=== PATIENT | female | born 1945 | race Caucasian/White ===

== ENCOUNTER 2017-10-08 16:53 | Emergency (ER) | payer BC ==
[2017-10-08 17:02] VITALS: BP 171/69
--- NOTE | 2017-10-08 17:44 | UC ---
Clayton Pulido Jennifer, scribed for Gregg Mills MD on 10/08/17 at 1713 . Back Pain HPI - HPI Summary HPI Summary: The pt is a 72 y/o female who complains of pain through her left back with shortness of breath that began a few days ago. Pt reports deep breaths aggravate her pain. Pt reports she was at [facility] this morning where they did a CXR and EKG and recommended a CT scan, which is why she came here. She additionally complains of chest pain, cough, and pain behind her right knee. Pt denies any recent illnesses, abdominal pain, fever, chills. - History of Current Complaint Chief Complaint: UCGeneralIllness Stated Complaint: BACK PAIN Time Seen by Provider: 10/08/17 17:06 Hx Obtained From: Patient Onset/Duration: Sudden Onset, Lasting Days - few days, Still Present Timing: Constant Severity Initially: Moderate Severity Currently: Moderate Pain Intensity: 6 Pain Scale Used: 0-10 Numeric Back Pain: Is Diffuse - especially left side Aggravating Factor(s): Other - Deep Breaths Alleviating Factor(s): Nothing Associated Signs And Symptoms: Positive: Other - CHest pain, Shortness of breath , cough, pain behind right knee. NEGATIVE: recent illness, abdominal pain, fever , chills - Allergies/Home Medications Allergies/Adverse Reactions: Allergies Allergy/AdvReac Type Severity Reaction Status Date / Time Penicillins Allergy Hives Verified 10/08/17 17:03 tetanus toxoid, adsorbed Allergy Edema Verified 10/08/17 17:03 PMH/Surg Hx/FS Hx/Imm Hx - Additional Past Medical History Additional PMH: Lyme disease. Endocrine History: Other - Varicose Veins Other Endocrine History: . GI/ History: Gastroesophageal Reflux, Other Other GI/ History: Colitis - Surgical History Surgical History: Yes Surgery Procedure, Year, and Place: right elbow - Family History Known Family History: Negative: Renal Disease - Social History Alcohol Use: None Substance Use Type: None Smoking Status (MU): Never Smoked Tobacco Review of Systems Constitutional: Negative - Fever, chills Respiratory: Shortness Of Breath, Cough Cardiovascular: Chest Pain Musculoskeletal: Other: - Back pain, pain behind right knee Is Patient Immunocompromised?: No All Other Systems Reviewed And Are Negative: Yes Physical Exam - Summary Physical Exam Summary: General: well-appearing, no pain distress Skin: warm, color reflects adequate perfusion, dry Head: normal Eyes: EOMI, ADRIENNE ENT: normal Neck: supple, nontender Respiratory: CTA, breath sounds present Cardiovascular: RRR Abdomen: soft, nontender Bowel: present Musculoskeletal: normal, strength/ROM intact Neurological: normal, sensory/motor intact, A&O x3 Psychological: affect/mood appropriate Triage Information Reviewed: Yes Vital Signs: Initial Vital Signs Temp 97.3 F 10/08/17 16:56 Pulse 73 10/08/17 16:56 Resp 20 10/08/17 16:56 BP 171/69 10/08/17 16:56 Pulse Ox 99 10/08/17 16:56 Vital Signs Reviewed: Yes Back Pain Course/Dx - Course Course Of Treatment: Medications reviewed. Allergies noted. BP noted and advised to follow up with PCP. PE AND CARDIAC ARE TWO POSSIBLE CAUSES OF THE PATIENT'S PAIN. WE ARE UNABLE TO EVALUATE FOR THOSE CONDITIONS HERE IN CLINIC. THIS WAS ALL DISCUSSED WITH THE PATIENT. SHE DECLINED AMBULANCE TRANSPORT, WILL GO BY POV. DISCUSSED WITH DR FRAGOSO IN THE ED. - Differential Dx/Diagnosis Provider Diagnoses: CHEST PAIN Discharge - Discharge Plan Condition: Stable Disposition: HOME Patient Education Materials: Chest Pain (ED) Referrals: Keke Lawson MD [Primary Care Provider] - Additional Instructions: GO DIRECTLY TO THE EMERGENCY DEPARTMENT FOR FURTHER EVALUATION OF YOUR CHEST PAIN. YOUR BLOOD PRESSURE WAS ELEVATED TODAY; FOLLOW UP WITH YOUR PRIMARY CARE DOCTOR WITHIN ONE WEEK. The documentation as recorded by the Clayton munguia Jennifer accurately reflects the service I personally performed and the decisions made by me, Gregg Mills MD.
== END 2017-10-08 17:25 | disposition home or self-care (01) ==
LOC: UCEAST 16:53
DX: R07.89 Other chest pain (principal); R06.02 Shortness of breath; R05 Cough; K21.9 Gastro-esophageal reflux disease without esophagitis; Z88.0 Allergy status to penicillin; Z88.7 Allergy status to serum and vaccine
CPT/HCPCS: 99212; G0463

== ENCOUNTER 2017-10-08 17:48 | Observation (INO) | payer BC, MEDICARE ==
[2017-10-08 18:42] LABS: ABS Basophils 0.1 10^3/ul (0-0.2); ABS Eosinophils 0.4 10^3/ul (0-0.6); ABS Monocytes 0.9 10^3/ul (0-0.8); ABS Neutrophils 5.3 10^3/ul (1.5-7.7); ABS Nucleated RBC 0 10^3/ul; Eosinophil % 3.7 % (0-6); Hematocrit 40 % (35-47); Hemoglobin 13.7 g/dl (12.0-16.0); Lymphocyte % 42.3 % (25-47); Mean Corpuscular HGB Conc 34 g/dl (31-36); Mean Corpuscular Hemoglobin 29 pg (27-31); Mean Corpuscular Volume 86 fL (80-97); Mean Platelet Volume 9 um3 (7.4-10.4); Nucleated Red Blood Cells % 0; Platelet Count 269 10^3/ul (150-450); Red Blood Count 4.65 10^6/ul (4.0-5.4); Red Cell Distribution Width 14 % (10.5-15); White Blood Count 11.8 10^3/ul (3.5-10.8)
--- NOTE | 2017-10-08 19:04 | RAD ---
Indication: Dyspnea. 2 views of the chest including dual energy PA views demonstrate no mediastinal shift. Heart is of normal size and configuration. Lung rodrigues are clear. IMPRESSION: No active cardiopulmonary disease is noted.
[2017-10-08 20:33] LABS: EGFR Non-African American 72.4 (>60)
[2017-10-08] MEDS ORDERED: Iohexol 350* (CONTRAST) 500 ML MDV IV ONE (20:42)
--- NOTE | 2017-10-08 21:29 | RAD ---
Indication: Dyspnea, elevated d-dimer. Contrast: Administered 72.2 ml of OMNIPAQUE 350 mg/ml CTA of the chest was performed after IV contrast administration. Coronal and sagittal reconstructed images were obtained. The pulmonary arterial tree is well opacified. There are 2 small filling defects in the subsegmental arteries of the left lower lobe suggestive of pulmonary embolus. Age of these is undetermined. The aorta demonstrates no evidence of aortic dissection or aneurysmal dilatation. The heart is of normal size without evidence of pericardial effusion. There is no mediastinal or hilar adenopathy noted. The trachea and major bronchi appear patent. The lung rodrigues demonstrate no evidence of alveolar consolidation. No focal nodules are identified. The visualized abdominal organs are grossly unremarkable. IMPRESSION: There are filling defects in 2 subsegmental pulmonary arteries in the left lower lobe which may represent pulmonary embolus. Age of these are undetermined. No other intraluminal filling defects are noted. No focal nodules or alveolar consolidation noted.
[2017-10-08] MEDS ORDERED: Heparin DRIP 25,000 UNITS(*) 25,000 UNITS/500 ML BAG IVPB SCH (22:00)
[2017-10-08] MEDS ORDERED: Heparin VIAL(*) 5000 UNITS/ML VIAL (FIVE THOUSAND) IV SCH (22:00)
[2017-10-08 22:18] LABS: ABS Basophils 0.1 10^3/ul (0-0.2); ABS Eosinophils 0.4 10^3/ul (0-0.6); ABS Lymphocytes 4.8 10^3/ul (1.0-4.8); ABS Monocytes 0.9 10^3/ul (0-0.8); ABS Neutrophils 4.8 10^3/ul (1.5-7.7); ABS Nucleated RBC 0 10^3/ul; Eosinophil % 3.7 % (0-6); Hematocrit 39 % (35-47); Hemoglobin 13.3 g/dl (12.0-16.0); Lymphocyte % 43.7 % (25-47); Mean Corpuscular HGB Conc 34 g/dl (31-36); Mean Corpuscular Hemoglobin 29 pg (27-31); Mean Corpuscular Volume 86 fL (80-97); Mean Platelet Volume 9 um3 (7.4-10.4); Nucleated Red Blood Cells % 0; Platelet Count 247 10^3/ul (150-450); Red Blood Count 4.53 10^6/ul (4.0-5.4); Red Cell Distribution Width 14 % (10.5-15)
[2017-10-08 22:31] LABS: EGFR Non-African American 78.1 (>60)
[2017-10-08] MEDS ORDERED: Acetaminophen TAB* 325 MG PO PRN (23:14)
[2017-10-08] MEDS ORDERED: amLODIPine TAB* 5 MG PO ONE (23:31)
[2017-10-09] MEDS: Apixaban* 5 MG TAB PO SCH ×2 (00:32→08:46)
--- NOTE | 2017-10-09 02:25 | HP ---
CC: Dr. Lawson * HISTORY AND PHYSICAL: DATE OF ADMISSION: 10/08/17 PRIMARY CARE PROVIDER: Dr. Lawson. CHIEF COMPLAINT: Chest pain/shortness of breath. HISTORY OF PRESENT ILLNESS: Ms. Moy is a 72-year-old female who at approximately 9 a.m. went to [facility] for complaints of shortness of breath and pain in her left upper back. She states that they did an EKG and a chest x-ray which were clear. She states they wanted to put her in an ambulance and send her to the emergency room; however, she refused. The patient then called to the emergency room later in the day to be seen and was told that it was busy, therefore, went to Urgent Care. She again was worked up for these complaints and again was told to go to the emergency room. The patient finally presented to the emergency room for evaluation. She was identified to have an elevated D-dimer of 254 and filling defects in 2 subsegmental pulmonary arteries in the left lower lobe. These were felt to be age indeterminate. The patient states that she has not had any recent long distance travel. She has not had any recent surgery. She does not have a history of recurrent miscarriages. She states currently she feels very comfortable. She has never had a DVT in the past. The patient's sister however has had a history of DVT; however, she has had a stroke and was paralysed and nonambulatory. Towards the end of my evaluation, the patient then reports to me that she had pain behind her right knee approximately 4 days ago. She notes the knee/lower leg was stiff, swollen and painful. This is now resolved. PAST MEDICAL HISTORY: 1. Hypertension. 2. Hypothyroidism. 3. History of ulcerative colitis. PAST SURGICAL HISTORY: Right elbow surgery. ALLERGIES: PENICILLIN. MEDICATIONS: 1. Metoprolol tartrate 25 mg p.o. twice daily. 2. Levofloxacin 100 mcg p.o. daily. 3. Ibuprofen 600 mg p.o. p.r.n. pain. 4. Prempro 0.625 mg 1 tab p.o. daily. FAMILY HISTORY: Mom is living, she is 95. She has Alzheimer's dementia and diabetes. Dad at the age of 49 of a "blood cancer." The patient's sister as above has a history of stroke and DVT recently. SOCIAL HISTORY: The patient is a former smoker. She quit approximately 17 years ago. She does not drink alcohol. She runs a bed and breakfast. She is . She has 3 children. She indicates that her , Magdy would be her healthcare proxy. REVIEW OF SYSTEMS: A complete 11-system review of systems is obtained. Pertinent positives and negatives are as per HPI and in addition, the patient does complain of chronic cough that she attributes to postnasal drip and intermittent hematuria. She states she has been worked up for this by Dr. Garrido with no clear cause found. The rest of the review of systems is negative. PHYSICAL EXAMINATION GENERAL: The patient is a well-developed, elderly female seen sitting up in the stretcher, in no acute distress. VITAL SIGNS: Blood pressure 174/82, pulse 70, respirations 18, temp 98.6, O2 sat 97% on room air. HEENT: Pupils are equal and round. Extraocular muscles are intact. Oropharynx is clear. Oral mucosa is moist. There is no submandibular, cervical or supraclavicular adenopathy. Thyroid is not enlarged. No thyroid nodules are noted. PULMONARY: Lungs are clear to auscultation bilaterally. CARDIAC: Normal S1, S2. Regular rate and rhythm. I do not appreciate any murmurs. ABDOMEN: Bowel sounds are present. Abdomen is soft, nontender and nondistended. MUSCULOSKELETAL: There is no edema of the lower extremities. There is full active range of motion of all 4 extremities. NEUROLOGIC: Cranial nerves II through XII are grossly intact. Sensation is intact to light touch throughout. Strength is 5/5 and symmetric in both upper and lower extremities bilaterally. PSYCH: The patient is alert. She is oriented x3. Affect appears appropriate. SKIN: Warm and dry. There are no rashes. DIAGNOSTIC STUDIES/LAB DATA: WBC 11.0, hemoglobin 13.3, hematocrit 39, platelets 247. D-dimer 254, PTT 27.5. Sodium 136, potassium 3.7, chloride 103 , CO2 24, BUN 12, creatinine 0.78, glucose 87, calcium 10.2, bilirubin 0.4. AST 18, ALT 11, alk phos 67. Troponin 0.01. Albumin 4.3. TSH 0.80. Chest x-ray, no active cardiopulmonary disease is noted. CTA chest, there are filling defects in 2 subsegmental pulmonary arteries in the left lower lobe, which may represent pulmonary emboli. The age of these are undetermined. No other intraluminal filling defects are noted. No focal nodules or alveolar consolidation is noted. EKG reveals normal sinus rhythm with possible LVH. ASSESSMENT AND PLAN: Ms. Moy is a 72-year-old female with a history of hypertension, hypothyroidism and ulcerative colitis, who presents to the emergency room with complaints of chest pain and shortness of breath that began this morning and was found to have 2 small pulmonary emboli. 1. Pulmonary emboli. The patient after a very lengthy discussion of the risks and benefits of Coumadin plus Lovenox injections until her INR is therapeutic versus Eliquis/Xarelto has decided to be started on Eliquis 5 mg twice daily. She does understand that there is no reversal agent at this time. 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 I have informed her that she will need to hold pressure longer. If it does not stop bleeding, she should present to the emergency room. The patient will undergo bilateral lower extremity Dopplers. As per the HPI, the patient towards the end of my evaluation with her did tell me that she had had pain behind her right knee. I am suspicious she may have had a DVT at that point. This appears to be an unprovoked DVT. Workup for hypocoagulable state could be considered as an outpatient. She will also undergo transthoracic echocardiogram. As long as the patient is stable tomorrow, she will be discharged home on Eliquis. 2. Hypertension. The patient's blood pressure is markedly elevated. She is seeming somewhat anxious. I will give amlodipine 5 mg x1 now. If her blood pressure remains elevated tomorrow, this could be added to her medication regimen. 3. Hypothyroidism. The patient will continue on levothyroxine 100 mcg p.o. daily. 4. DVT prophylaxis. According to the Adult Thrombosis Prophylaxis Risk Factor Assessment Guide, the patient has a total risk factor score of 6 making her the highest risk. As above, she will be on Eliquis. 5. Code status is full. TIME SEEN: Sixty-five minutes was spent admitting this patient. [id number]/[facility] #: [id number] JULES
[2017-10-09] MEDS ORDERED: Levothyroxine TAB* 100 MCG TAB PO SCH (08:00)
[2017-10-09] MEDS ORDERED: Metoprolol Tartrate TAB* 25 MG PO SCH (09:00)
--- NOTE | 2017-10-09 10:32 | RAD ---
HISTORY: Evaluate for DVT, right knee pain COMPARISONS: None relevant TECHNIQUE: Multiple transverse and longitudinal ultrasound images were obtained of the right lower extremity from the level of the common femoral vein inferiorly through to the infrapopliteal veins using grayscale, color Doppler, and spectral Doppler imaging with and without compression and with augmentation. Comparison images were obtained of the contralateral common femoral vein. FINDINGS: VEINS: The venous system of the right lower extremity is compressible throughout its course, with normal flow on color Doppler imaging and normal response to augmentation on spectral Doppler imaging. SOFT TISSUES: Unremarkable. OTHER FINDINGS: None. IMPRESSION: NO RIGHT LOWER EXTREMITY DEEP VEIN THROMBOSIS
--- NOTE | 2017-10-09 11:54 | ECHO ---
Patient: SUZY DUMONT [facility] Rec#: [id number] : 1945 Date: 10/09/2017 Age: 72y Height: 167.6 cm / 66.0 in Weight: 79.8 kg / 175.9 lbs Sex: F BSA: 1.9 Room#: [facility] Admit Date#: 10/08/2017 Type: Inpatient Referring: Socorro Jones DO Reading: Eusebia Perez MD Lump Receiver: Ivania Palma RN RDCS CC: WYATT SHELTON Transthoracic Echocardiogram Indication: Pulmonary embolism BP: 141/79 HR: 74 Rhythm: NSR Findings History: HTN, hypothyroidism, former smoker Technical Comments: The study quality is fair. The study is technically limited due to patient body habitus. The study is technically limited due to the patient's smoking history. Completed at 0855. Left Ventricle: The left ventricular chamber size is normal. There is a prominent septal knuckle. Global left ventricular wall motion and contractility are within normal limits. There is normal left ventricular systolic function. The estimated ejection fraction is 55-60%. The assessment of diastolic function is non-diagnostic. Left Atrium: The left atrial chamber size is normal. Right Ventricle: The right ventricular chamber size and systolic function are within normal limits. Right Atrium: The right atrial cavity size is normal. Aortic Valve: The aortic valve is trileaflet. The aortic valve leaflets are mildly thickened. There is mild aortic regurgitation. There is no evidence of aortic stenosis. Mitral Valve: The mitral valve leaflets are mildly thickened. There is a trace of mitral regurgitation. There is no evidence of mitral stenosis. Tricuspid Valve: The tricuspid valve leaflets are normal. There is trace tricuspid regurgitation. Unable to estimate the right ventricular systolic pressure. There is no tricuspid stenosis. Pulmonic Valve: The pulmonic valve structure is not well visualized. There is a trace pulmonic regurgitation. There is no pulmonic stenosis. Pericardium: There is no significant pericardial effusion. A pericardial fat pad is visualized. Aorta: The ascending aorta is not well visualized. There is no dilatation of the aortic arch. There is no dilation of the aortic root. Pulmonary Artery: The main pulmonary artery is not well visualized. Venous: The inferior vena cava appears normal in size. There is a greater than 50% respiratory change in the inferior vena cava dimension. Summary: There was not any prior study for comparison. Conclusions The left ventricular chamber size is normal. There is normal left ventricular systolic function. The estimated ejection fraction is 55-60%. There is mild aortic regurgitation. There is a trace of mitral regurgitation. There is trace tricuspid regurgitation. There is a trace pulmonic regurgitation. Measurements Name Value Normal Range RVDdMajor (2D) 3 cm (2.2 - 4.4) RAd ISD 4CH 4.5 cm (3.4 - 4.9) RA (A4C)W 3.2 cm (2.9 - 4.6) IVSd (2D) 1 cm (0.6 - 1) LVPWd (2D) 1 cm (0.6 - 1) LVIDd (2D) 3.9 cm (3.6 - 5.4) LVIDs (2D) 2.9 cm - LV FS (2D) 26 % (25 - 45) Aortic Annulus 2 cm (1.4 - 2.6) Ao root diameter (2D) 3.1 cm (2.1 - 3.5) Aortic arch 2.6 cm (1.8 - 3.4) LA dimension (AP) 2D 2.7 cm (2.3 - 3.8) LAd ISD 4CH 4.6 cm (2.9 - 5.3) LA ISD 4CH W 4.2 cm (2.5 - 4.5) Name Value Normal Range LA ESV SP 4CH (A/L) 42 ml - LA ESV SP 2CH (A/L) 25 ml - LA ESV BP (A/L) 32 ml - LA ESV BP (A/L) index 17.1 ml/m2 - LA ESV SP 4CH (MOD) 41 ml - LA ESV SP 2CH (MOD) 23 ml - Name Value Normal Range MV E-wave Vmax 0.8 m/sec - MV deceleration time 249 msec - MV A-wave Vmax 1 m/sec - MV E:A ratio 0.79 ratio - LV septal e' Vmax 0.04 m/sec - LV lateral e' Vmax 0.06 m/sec - LV E:e' septal ratio 20 ratio - LV E:e' lateral ratio 13.3 ratio - Name Value Normal Range AV Vmax 1.1 m/sec - AV VTI 22.6 cm - AV peak gradient 4.7 mmHg - AV mean gradient 2.4 mmHg - LVOT Vmax 0.94 m/sec - LVOT VTI 18.7 cm - LVOT peak gradient 3.5 mmHg - LVOT mean gradient 1.8 mmHg - GRETCHEN Vmax 0.46 m/sec - Name Value Normal Range IVC diameter 1.4 cm - Name Value Normal Range PV Vmax 0.74 m/sec -
[2017-10-09 11:56] VITALS: BP 150/84
--- NOTE | 2017-10-09 13:50 | PN ---
Subjective Date of Service: 10/09/17 Interval History: Patient seen and examined at bedside. Denies fever, chills, shortness of breath , N/V/D. Pt reports an intermittent "bubble sensation" in her lower epigastric area. She reports eating a lot of pie at home recently. Pt also reports a discomfort in the back of her right knee on Thursday, that has since resolved. Tele: Sinus rhythm, rate 60-80's. Family History: Unchanged from Admission Social History: Unchanged from Admission Past Medical History: Unchanged from Admission Objective Active Medications: Acetaminophen (Tylenol Tab*) 650 mg PO Q4H PRN Reason: PAIN Apixaban (Eliquis*) 5 mg PO BID IVETT Levothyroxine Sodium (Synthroid Tab*) 100 mcg PO 0800 IVETT Metoprolol Tartrate (Lopressor Tab*) 25 mg PO BID IVETT Vital Signs - 8 hr 10/09/17 10/09/17 08:37 11:42 Temperature 97.6 F 97.8 F Pulse Rate 76 62 Respiratory 14 16 Rate Blood Pressure 138/70 150/84 (mmHg) O2 Sat by Pulse 96 97 Oximetry Oxygen Devices in Use Now: None Appearance: NAD, sitting up in bed Respiratory: Symmetrical Chest Expansion and Respiratory Effort, Clear to Auscultation Cardiovascular: NL Sounds; No Murmurs; No JVD, RRR Abdominal: NL Sounds; No Tenderness; No Distention Extremities: No Edema Skin: No Rash or Ulcers Neurological: Alert and Oriented x 3, NL Muscle Strength and Tone Lines/Tubes/Other Access: Clean, Dry and Intact Peripheral IV - site benign Nutrition: Taking PO's Result Diagrams: 10/08/17 22:00 10/08/17 22:00 Assess/Plan/Problems-Billing Assessment: Ms. Moy is a 72 yo female with PMH significant for HTN, hypothyroidism, and ulcerative colitis who presented to the emergency room with complaints of shortness of breath and chest discomfort. - Patient Problems (1) Pulmonary embolism Code(s): I26.99 - OTHER PULMONARY EMBOLISM WITHOUT ACUTE COR PULMONALE SNOMED Code(s): 76710960 Comment: - Suspect this is secondary to a clotting disorder (strong family history in children and siblings) and not a provoked clot - Outpatient work-up for clotting disorders - Echo WNL, bilateral LE US negative - Continue Eliquis (2) HTN (hypertension) Code(s): I10 - ESSENTIAL (PRIMARY) HYPERTENSION SNOMED Code(s): 01067251 Comment: - SBP 130-180 - Continue metoprolol - Will start amlodipine (3) Hypothyroidism Status: Chronic Code(s): E03.9 - HYPOTHYROIDISM, UNSPECIFIED SNOMED Code(s) : 62943741 Comment: - TSH 0.80 - Continue levothyroxine (4) DVT prophylaxis Code(s): RNX8062 - SNOMED Code(s): 406680344 Comment: - Aprylis (5) Full code status Code(s): Z78.9 - OTHER SPECIFIED HEALTH STATUS SNOMED Code(s): 188902759 Status and Disposition: Inpatient. Stable for discharge to home today.
--- NOTE | 2017-10-10 02:08 | DS ---
ADDENDUM NOW INCLUDED ON THIS REPORT CC: Dr. Keke Lawson * DISCHARGE SUMMARY: DATE OF ADMISSION: 10/08/17 DATE OF DISCHARGE: 10/09/17 ATTENDING PHYSICIAN: Dr. Jason Conde * (dictated by Rodolfo Haq NP). PRIMARY CARE PROVIDER: Dr. Keke Lawson. PRIMARY DIAGNOSES: 1. Pulmonary embolus. 2. Hypertension. SECONDARY DIAGNOSES: 1. Hypothyroidism. 2. History of ulcerative colitis. STUDIES WHILE IN THE HOSPITAL: 1. Chest x-ray on 10/08/17. Radiologist's impression: No active cardiopulmonary disease is noted. 2. Chest thoracic CTA on 10/08/17. Radiologist's impression: There are filling defects in 2 subsegmental pulmonary arteries in the left lower lobe, which may represent pulmonary embolus. Age of these are undetermined. No other intraluminal filling defects are noted. No focus nodules or alveolar consolidation noted. 3. Bilateral lower extremity venous Doppler Ultrasound on 10/09/17. Radiologist's impression. No right lower extremity deep vein thrombosis. There is no left lower extremity deep vein thrombosis. 4. Transthoracic echocardiogram on 10/09/17. Metallurgist Helper's conclusion: The left ventricular chamber size is normal. There is normal left ventricular systolic function. The estimated ejection fraction is 55% to 60%. There is mild aortic regurgitation, trace with mitral regurgitation, trace tricuspid regurgitation, trace pulmonic regurgitation. HISTORY OF PRESENT ILLNESS/HOSPITAL COURSE: Ms. Moy is a 72-year-old female with past medical history significant for hypertension, hypothyroidism, and ulcerative colitis, who at approximately 9 a.m. went to [facility] with complaints of shortness of breath and pain in her left upper back. She reports they did an EKG and chest x-ray, which were clear. They recommended she be brought by EMS to the emergency room for further evaluation, but she refused. The patient then called the emergency room later on the day to be seen and was told that it was busy, therefore she went to Urgent Care. She again was worked for these complaints and again told to go to the emergency room. The patient finally decided to present to the emergency room. While in the emergency room, the patient was noted to have a D-dimer of 254, had a CT of her chest showing 2 subsegmental pulmonary emboli in the left lower lobe. The patient denied any recent travel or surgeries. She does not have a history of recurrent miscarriages. She has never had a DVT in the past. The patient's sister, however, has a history of a DVT, history of a stroke. In addition, her daughter has had a history of a DVT. During her evaluation, she also reported to having pain behind her right knee approximated 4 days ago and had noted that her leg was stiff, swollen, and painful and that has resolved. Due to the findings of her pulmonary embolus, the Hospitalists were asked to evaluate the patient for anticoagulation loading and admission. While in the hospital, the patient was started on Eliquis. After a lengthy discussion, she had a transthoracic echocardiogram without significant findings , bilateral lower extremity venous Dopplers without findings of a DVT. She was noted to be hypertensive and started on amlodipine. The patient was feeling well, denying shortness of breath. She was intermittently reporting some chest discomfort that she described as a bubble and felt it was secondary to indigestion. She was not hypoxic. Ms. Moy is stable for discharge to home today. Vital signs are as follows: Temperature 97.8, heart rate 62, respiratory rate 16, O2 sat 97% on room air, blood pressure 150/82. DISCHARGE PLAN: Mr. Moy will be discharged to home. ACTIVITY: As tolerated. DIET: She will be on regular diet. In regards to her 2 pulmonary emboli, she has been started on Eliquis. She should be referred to Hematology possibly in the future or at a minimum have a hypercoagulable workup once she does not have an acute clot to alter the results as the patient's daughter and sister have a history of DVTs. I suspect there may be a family history of clotting disorders that have not been diagnosed. The patient was noted to be hypertensive during her stay. She did not have her metoprolol increased due to having heart rates mostly in the 60s and that she was started on amlodipine, to be continued on her other usual home medication. She has been asked to return to the emergency room for any chest pain, shortness of breath. Dr. Lawson's office will call her with a followup appointment. She has been instructed to call Dr. Lawson's office on Thursday if she does not hear from them with an appointment. This is a summarized report of a complex medical history and hospital stay. For further details, please see the entire medical record. CONDITION ON DISCHARGE: Stable. RODOLFO HAQ NP ADDENDUM: DISCHARGE MEDICATIONS: New home medications: 1. Acetaminophen 650 mg oral every 4 hours as needed for pain. 2. Eliquis 5 mg oral twice daily. 3. Amlodipine 5 mg oral daily. Continued home medications: 1. Levothyroxine 100 mcg oral daily. 2. Prempro 0.625/2.5 one tablet oral daily. 3. Metoprolol tartrate 25 mg oral twice daily. Discontinued home medications: 1. Ibuprofen. RODOLFO HAQ NP [id number]/CPS #: [id number]/CPS #: [id number] JULES
--- NOTE | 2017-10-10 02:33 | DS ---
DISCHARGE SUMMARY: ADDENDUM: DISCHARGE MEDICATIONS: New home medications: 1. Acetaminophen 650 mg oral every 4 hours as needed for pain. 2. Eliquis 5 mg oral twice daily. 3. Amlodipine 5 mg oral daily. Continued home medications: 1. Levothyroxine 100 mcg oral daily. 2. Prempro 0.625/2.5 one tablet oral daily. 3. Metoprolol tartrate 25 mg oral twice daily. Discontinued home medications: Ibuprofen. RODOLFO HAQ, TOOL CRIB LEAD [id number]/CPS #: [id number] JUELS
--- NOTE | 2017-10-14 23:36 | ED ---
Olga Pulido Julia, scribed for Wilver Faith MD on 10/08/17 at 1820 . Shortness of Breath - HPI Summary HPI Summary: This patient is a 72 year old F presenting to [facility] with a chief complaint of sharp upper back pain with SOB since yesterday.Patient denies fever, chills, and sweats. Symptoms aggravated by activity. Symptoms unchanged by position and deep breaths. Patient has a history of blood clots in her right anterior ankle. She states she cannot walk for without getting SOB. - History of Current Complaint Chief Complaint: EDShortnessOfBreath Time Seen by Provider: 10/08/17 18:14 Hx Obtained From: Patient Onset/Duration: Lasting Hours Aggrevating Factors: Other - exertion - Allergy/Home Medications Allergies/Adverse Reactions: Allergies Allergy/AdvReac Type Severity Reaction Status Date / Time Penicillins Allergy Hives Verified 10/08/17 17:03 tetanus toxoid, adsorbed Allergy Edema Verified 10/08/17 17:03 PMH/Surg Hx/FS Hx/Imm Hx Endocrine/Hematology History: Reports: Hx Thyroid Disease Denies: Hx Diabetes Cardiovascular History: Reports: Hx Hypertension, Other Cardiovascular Problems/ Disorders - blood clots Respiratory History: Denies: Hx Asthma, Hx Chronic Obstructive Pulmonary Disease (COPD) GI History: Denies: Hx Ulcer - Cancer History Hx Chemotherapy: No Hx Radiation Therapy: No - Surgical History Surgery Procedure, Year, and Place: right elbow - Immunization History Date of Tetanus Vaccine: Allergic Date of Influenza Vaccine: None Infectious Disease History: No Infectious Disease History: Denies: Hx Hepatitis, Hx Human Immunodeficiency Virus (HIV), Traveled Outside the [place] in Last 30 Days - Family History Known Family History: Negative: Renal Disease - Social History Alcohol Use: None Substance Use Type: Reports: None Smoking Status (MU): Never Smoked Tobacco Review of Systems Negative: Fever, Chills, Skin Diaphoresis Positive: Shortness Of Breath Positive: Myalgia - upper back pain All Other Systems Reviewed And Are Negative: Yes Physical Exam - Summary Physical Exam Summary: Appearance: Well-appearing, Well-nourished Skin: Warm, Dry, No rash Eyes: Normal, PERRL, EOMI, sclera anicteric ENT: Normal Neck: Supple, nontender Respiratory: Clear to auscultation Cardiovascular: S1, S2, no murmur, no rub, no gallop Abdomen: Soft, nontender, no organomegaly Bowel sounds: Present Musculoskeletal: Normal, Strength/ROM Intact, no edema, pulses symmetrical Neurological: Normal, A&Ox3, cranial nerves II-XII WNL, follows commands, gait not tested, sensation intact to pin and light touch Psychiatric: affect normal, behavior appropriate, dressed appropriately, judgment intact Triage Information Reviewed: Yes Vital Signs On Initial Exam: Initial Vitals Temp Pulse Resp BP Pulse Ox 98.9 F 69 20 196/83 100 10/08/17 17:52 10/08/17 17:52 10/08/17 17:52 10/08/17 17:52 10/08/17 17:52 Vital Signs Reviewed: Yes Diagnostics - Vital Signs Vital Signs Temp Pulse Resp BP Pulse Ox 10/08/17 17:52 98.9 F 69 20 196/83 100 - Laboratory Lab Results: Lab Results 10/08/17 10/08/17 10/08/17 Range/Units 18:29 18:29 18:29 WBC 11.8 H (3.5-10.8) 10^3/ul RBC 4.65 (4.0-5.4) 10^6/ul Hgb 13.7 (12.0-16.0) g/dl Hct 40 (35-47) % MCV 86 (80-97) fL MCH 29 (27-31) pg MCHC 34 (31-36) g/dl RDW 14 (10.5-15) % Plt Count 269 (150-450) 10^3/ul MPV 9 (7.4-10.4) um3 Neut % (Auto) 45.0 (38-83) % Lymph % (Auto) 42.3 (25-47) % Amelia % (Auto) 8.0 H (0-7) % Eos % (Auto) 3.7 (0-6) % Baso % (Auto) 1.0 (0-2) % Absolute Neuts (auto) 5.3 (1.5-7.7) 10^3/ul Absolute Lymphs (auto) 5.0 H (1.0-4.8) 10^3/ul Absolute Monos (auto) 0.9 H (0-0.8) 10^3/ul Absolute Eos (auto) 0.4 (0-0.6) 10^3/ul Absolute Basos (auto) 0.1 (0-0.2) 10^3/ul Absolute Nucleated RBC 0 10^3/ul Nucleated RBC % 0 APTT (26.0-36.3) seconds D-Dimer, Quantitative 254 H (Less Than 230) ng/mL Sodium 136 (133-145) mmol/L Potassium 3.7 (3.5-5.0) mmol/L Chloride 103 (101-111) mmol/L Carbon Dioxide 24 (22-32) mmol/L Anion Gap 9 (2-11) mmol/L BUN 12 (6-24) mg/dL Creatinine 0.78 (0.51-0.95) mg/dL Est GFR ( Amer) 93.1 (>60) Est GFR (Non-Af Amer) 72.4 (>60) BUN/Creatinine Ratio 15.4 (8-20) Glucose 87 (70-100) mg/dL Calcium 10.2 (8.6-10.3) mg/dL Total Bilirubin 0.40 (0.2-1.0) mg/dL AST 18 (13-39) U/L ALT 11 (7-52) U/L Alkaline Phosphatase 67 (34-104) U/L Troponin I 0.01 (<0.04) ng/mL Total Protein 7.8 (6.4-8.9) g/dL Albumin 4.3 (3.2-5.2) g/dL Globulin 3.5 (2-4) g/dL Albumin/Globulin Ratio 1.2 (1-3) TSH 0.80 (0.34-5.60) mcIU/mL 10/08/17 10/08/17 10/08/17 Range/Units 22:00 22:00 22:00 WBC 11.0 H (3.5-10.8) 10^3/ul RBC 4.53 (4.0-5.4) 10^6/ul Hgb 13.3 (12.0-16.0) g/dl Hct 39 (35-47) % MCV 86 (80-97) fL MCH 29 (27-31) pg MCHC 34 (31-36) g/dl RDW 14 (10.5-15) % Plt Count 247 (150-450) 10^3/ul MPV 9 (7.4-10.4) um3 Neut % (Auto) 43.9 (38-83) % Lymph % (Auto) 43.7 (25-47) % Amelia % (Auto) 7.7 H (0-7) % Eos % (Auto) 3.7 (0-6) % Baso % (Auto) 1.0 (0-2) % Absolute Neuts (auto) 4.8 (1.5-7.7) 10^3/ul Absolute Lymphs (auto) 4.8 (1.0-4.8) 10^3/ul Absolute Monos (auto) 0.9 H (0-0.8) 10^3/ul Absolute Eos (auto) 0.4 (0-0.6) 10^3/ul Absolute Basos (auto) 0.1 (0-0.2) 10^3/ul Absolute Nucleated RBC 0 10^3/ul Nucleated RBC % 0 APTT 27.5 (26.0-36.3) seconds D-Dimer, Quantitative (Less Than 230) ng/mL Sodium (133-145) mmol/L Potassium (3.5-5.0) mmol/L Chloride (101-111) mmol/L Carbon Dioxide (22-32) mmol/L Anion Gap (2-11) mmol/L BUN 11 (6-24) mg/dL Creatinine 0.73 (0.51-0.95) mg/dL Est GFR ( Amer) 100.5 (>60) Est GFR (Non-Af Amer) 78.1 (>60) BUN/Creatinine Ratio (8-20) Glucose (70-100) mg/dL Calcium (8.6-10.3) mg/dL Total Bilirubin (0.2-1.0) mg/dL AST (13-39) U/L ALT (7-52) U/L Alkaline Phosphatase (34-104) U/L Troponin I (<0.04) ng/mL Total Protein (6.4-8.9) g/dL Albumin (3.2-5.2) g/dL Globulin (2-4) g/dL Albumin/Globulin Ratio (1-3) TSH (0.34-5.60) mcIU/mL Result Diagrams: 10/08/17 22:00 10/08/17 22:00 Lab Statement: Any lab studies that have been ordered have been reviewed, and results considered in the medical decision making process. - Radiology CXR Radiology Interpretation Completed By: Radiologist - No active cardiopulmonary disease is noted. ED Physician has reviewed this report. - CT Chest/Thorax CT Interpretation Completed By: Radiologist - There are filling defects in 2 subsegmental pulmonary arteries in the left lower lobe which may represent pulmonary embolus. Age of these are undetermined. No other intraluminal filling defects are noted. No focal nodules or alveolar consolidation noted. ED Physician has reviewed this report. - EKG 18:38 Cardiac Rate: NL EKG Rhythm: Sinus Rhythm EKG Interpretation: LVH Course/Dx - Course Course Of Treatment: Patient presents with sharp upper back pain with SOB since yesterday. Symptoms aggravated by activity. Patient has a history of blood clots in her right anterior ankle. An EKG is unremarkable. CXR is unremarkable. Lab results reveal an elevated D-Dimer. A Chest CT reveal pulmonary embolus. Patient is given Heparin. Dr. Jones admits this patient. - Diagnoses Provider Diagnoses: Pulmonary embolism, SOB (shortness of breath) - Physician Notifications Discussed Care of Patient With: Socorro Jones - hospitalist Time Discussed With Above Provider: 21:46 Instructed by Provider To: Admit As Inpatient Discharge - Discharge Plan Condition: Stable Disposition: ADMITTED TO [facility] Discharge Disposition Comment: admit to [facility] The documentation as recorded by the Olga munguia Julia accurately reflects the service I personally performed and the decisions made by me, Wilver Faith MD.
== END 2017-10-09 14:30 | disposition home or self-care (01) ==
LOC: ED 17:48 → MEDTELE 22:48
PROVIDERS: ADMIT Hospitalist; ATTEND Internal Medicine
DX: I26.99 Other pulmonary embolism without acute cor pulmonale (principal); I10 Essential (primary) hypertension; E03.9 Hypothyroidism, unspecified; K51.90 Ulcerative colitis, unspecified, without complications; Z79.899 Other long term (current) drug therapy; Z88.0 Allergy status to penicillin; Z88.7 Allergy status to serum and vaccine; Z87.891 Personal history of nicotine dependence; R94.31 Abnormal electrocardiogram [ECG] [EKG]
CPT/HCPCS: 36415; 71046; 71275; 80053; 82565; 84443; 84484; 84520; 85025; 85379; 85730; 93005; 93306; 93970; 99284; A9270-GY; G0378; J1644; Q9967